=== PATIENT | female | born 2000 | race Caucasian/White ===

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

== ENCOUNTER 2019-10-14 15:28 | Emergency (ER) | payer BC ==
[2019-10-14 15:38] VITALS: BP 163/104; PULSE 96
[2019-10-14] MEDS ORDERED: LORazepam 1 MG Tab PO ONE (15:50)
--- NOTE | 2019-10-14 15:51 | EDM.PDOCBH ---
ED HPI GENERAL MEDICAL PROBLEM - General Chief Complaint: Behavioral/Psych Stated Complaint: RACING HEART/ SOB/NAUSEA Time Seen by Provider: 10/14/19 15:36 Source of Information: Reports: Patient, Family (mother) History Limitations: Reports: No Limitations - History of Present Illness INITIAL COMMENTS - FREE TEXT/NARRATIVE: 19-year-old female presents to the ED with feeling of shortness of breath and racing heart and pressure in her throat. Some numbness and tingling in her left upper extremity which comes and goes. Symptoms have been present for over 2 hours. She had similar symptoms last evening at home but was able to fall asleep. She has had milder similar symptoms in the past but never to this severity. She is otherwise healthy. She is prone to migraines and takes amitriptyline once daily at bedtime to prevent the headaches from occurring. He is been on this medication for a lengthy period of time. Denies any possibility of . Onset: Today Onset Date: 10/14/19 Onset Time: 14:00 Duration: Hour(s):, Constant Location: Reports: Generalized (Feeling of palpitations racing heart shortness of breath numbness and tingling in upper extremities.) Quality: Reports: Other (Fibrillation syndrome due to panic attack) Severity: Moderate Improves with: Reports: None Worsens with: Reports: None Context: Reports: Other. Denies: Activity, Exercise, Lifting, Sick Contact, Trauma Associated Symptoms: Reports: Loss of Appetite, Malaise, Nausea/Vomiting (Mild nausea without vomiting), Weakness, Other. 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 Below) 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: r ovary removal Musculoskeletal History: Reports: Fracture Other Neuro History: Patient states she gets migraines occasionally, Not been diagnosed as such Psychiatric History: Reports: ADHD Endocrine/Metabolic History: Reports: Obesity/BMI 30+ Dermatologic History: Reports: Eczema Other Dermatologic History: Eczema on stomach, Herpes hands/arms - Infectious Disease History Infectious Disease History: Reports: Herpes, Influenza, Mononucleosis Other Infectious Disease History: Hands and arm - Past Surgical History HEENT Surgical History: Reports: Oral Surgery Other HEENT Surgeries/Procedures: [place] teeth removed x3 Other Musculoskeletal Surgeries/Procedures:: (Patient thinks Left)Foot and leg surgery as a child Dermatological Surgical History: Reports: None - Past Imaging History Past Imaging History: Reports: CAT Scan (10/06/17 of abdomen pelvis), Ultrasound (10/06/17 Transabdominal and transvaginal pelvic ultrasounds) Social & Family History - Family History Family Medical History: Noncontributory HEENT: Reports: Cataract, Glaucoma Cardiac: Reports: Heart Failure, Hypertension, [place], Pacemaker GI: Reports: GERD Musculoskeletal: Reports: Arthritis Neurological: Reports: CVA, Migraines Endocrine/Metabolic: Reports: Diabetes, type II Oncologic: Reports: Lung Other Oncologic Family History: Patients maternal grandfather - Tobacco Use Smoking Status *Q: Never Smoker Second Hand Smoke Exposure: No - Caffeine Use Caffeine Use: Reports: Coffee, Energy Drinks, Soda Other Caffeine Use: Occasionally - Recreational Drug Use Recreational Drug Use: No - Living Situation & Occupation Living situation: Reports: Single Occupation: Student ED ROS GENERAL - Review of Systems Review Of Systems: See Below Constitutional: Reports: Malaise, Weakness, Fatigue, Decreased Appetite. Denies : Fever, Chills HEENT: Reports: No Symptoms Respiratory: Reports: Shortness of Breath. Denies: Wheezing, Pleuritic Chest Pain, Cough, Sputum Cardiovascular: Reports: Dyspnea on Exertion, Lightheadedness, Palpitations. Denies: Chest Pain, Blood Pressure Problem, Claudication, Edema, Orthopnea Endocrine: Reports: Fatigue GI/Abdominal: Reports: Nausea. Denies: Vomiting : Reports: No Symptoms Musculoskeletal: Reports: No Symptoms Skin: Reports: No Symptoms Neurological: Reports: No Symptoms Psychiatric: Reports: No Symptoms Hematologic/Lymphatic: Reports: No Symptoms Immunologic: Reports: No Symptoms ED EXAM, BEHAVIORAL HEALTH - Physical Exam Exam: See Below Exam Limited By: No Limitations General Appearance: Alert, WD/WN, Moderate Distress, Other (Vital signs show temperature 36.9 heart rate is 96 and sinus. Respiratory rate of 20/m with sats of 100% on room air. Blood pressure elevated 163/104 but quickly came back down to normal.) Eye Exam: Bilateral Eye: Normal Inspection, PERRL, Other (Has been crying a good deal with peripheral erythema both lower eyelids and smeared mascara periorbitally.) Throat/Mouth: Normal Inspection, Normal Lips, Normal Teeth, Normal Oropharynx Head: Atraumatic, Normocephalic Neck: Normal Inspection, Supple, Non-Tender, Full Range of Motion. No: Carotid Bruit, Lymphadenopathy (L), Lymphadenopathy (R), Thyromegaly Respiratory/Chest: Lungs Clear (Mild tachypnea.), Normal Breath Sounds, No Accessory Muscle Use, Chest Non-Tender, Respiratory Distress Cardiovascular: Normal Peripheral Pulses, Regular Rate, Rhythm, No Edema, No Gallop, No Murmur, No Rub GI/Abdominal: Normal Bowel Sounds, Soft, Non-Tender, No Organomegaly, No Mass, Pelvis Stable. No: Distended Extremities: Normal Inspection, Normal Range of Motion, Non-Tender, No Pedal Edema, Normal Capillary Refill Neurological: Alert, Normal Mood/Affect, CN II-XII Intact, Normal Cognition, Normal Gait, Normal Reflexes, No Motor/Sensory Deficits, Oriented x 3 Psychiatric: Alert, Normal Cognition, Other (Anxious) Skin Exam: Warm, Dry, Intact, Normal color, No rash COURSE, BEHAVIORAL HEALTH COMP - Course Vital Signs: Last Vital Signs Temp 36.9 C 10/14/19 15:38 Pulse 96 10/14/19 15:38 Resp 18 10/14/19 15:38 BP 163/104 H 10/14/19 15:38 Pulse Ox 100 10/14/19 15:38 Orders, Labs, Meds: Medications Discontinued Medications Generic Name Dose Route Start Last Admin Trade Name Freq PRN Reason Stop Dose Admin Lorazepam 1 mg 10/14/19 15:50 Ativan PO 10/14/19 15:51 ONETIME ONE Re-Assessment/Re-Exam: 19-year-old female presents to the ED with acute onset of hyperventilation syndrome so she with palpitations dyspnea and pressure in her throat. Symptoms been ongoing for the last 2 hours. She had milder symptoms last evening. She admits that she's had milder forms of anxiety attacks off and on for the last 2- 3 years. She just finished final exams for the first semester of college last week and did fine. She can't identify any other stressors at this point time. She believes she's been getting adequate sleep. She works at [employer] and works the day shift periodically with no stressors at her workplace. Vital signs are within normal limits other than mild tachypnea. Blood pressure was up initially but did come down with time. Examination neurologically normal. Chest is clear to stage percussion and heart sinus. No thyromegaly identified. Assessment is panic attack. Give Ativan 1 mg by mouth at this time she was not anxious to have an IV stick. I will see how she is in a half an hour. Re-Assessment/Re-Exam Date: 10/14/19 (Patient appears much more relaxed." Found out that she has not yet received the Ativan ordered by mouth. I will plan on giving her a tablet and a prescription for 8 more tablets to be used on a when necessary basis for panic disorder. Keep on coming back or persist for more than 3 weeks she is to follow-up with personal physician and consider chronic anxiety medication such as citalopram 20 mg once daily etc.) Departure - Departure Time of Disposition: 16:30 Disposition: Home, Self-Care 01 Condition: Fair Clinical Impression: Panic attack - Discharge Information *PRESCRIPTION DRUG MONITORING PROGRAM REVIEWED*: Not Applicable *COPY OF PRESCRIPTION DRUG MONITORING REPORT IN PATIENT JOSH: Not Applicable Prescriptions: LORazepam [Ativan] 1 mg PO Q8H PRN #8 tablet PRN Reason: Anxiety attack Referrals: Olga Barroso PA-C [Primary Care Provider] - Forms: ED Department Discharge Additional Instructions: Evaluation the emergent today in regards to sudden onset of feeling like her heart was racing associate with shortness of breath and pressure in the throat and some numbness and tingling in the hands. He symptoms have been present off and on since last evening but became much worse 2 hours before coming to the ED. Vital signs are normal .Oxygenation 100% on room air. Heart rate in the high 90s but no abnormal rhythms identified. Lungs are clear. The symptoms are that of an anxiety attack or panic attack. This can occur for no rhyme or reason. It is usually due to an imbalance of hormones in the brain which can be affected by menstrual cycle etc. Sleep can also bring it on. You were treated with Ativan 1 mg by mouth. Unfortunately medicine was not given to until 40 minutes after was ordered. Will take about a half an hour to 45 minutes to start reduce symptoms are prevent symptoms from recurring over the next 6-8 hours. Written a prescription for the same medication be taken every 8 hours as needed for similar symptoms. Symptoms continue to recur over the next 2-3 weeks and are not settling down then you need to follow-up with her personal care physician and we have alternative medications that were used to bring anxiety symptoms under control long-term without any potential for addiction to medications. Medication will likely make you somewhat sleepy and you should plan on staying home tonight and getting to bed a bit earlier than normal. Sepsis Event Note - Evaluation Sepsis Screening Result: No Definite Risk - Focused Exam Vital Signs: Vital Signs Temp Pulse Resp BP Pulse Ox 10/14/19 15:38 36.9 C 96 18 163/104 H 100 Date Exam was Performed: 10/14/19 Time Exam was Performed: 16:30
== END 2019-10-14 16:48 | disposition home or self-care (01) ==
LOC: JD.ED 15:28
DX: F41.0 Panic disorder [episodic paroxysmal anxiety] (principal); F90.9 Attention-deficit hyperactivity disorder, unspecified type; E66.9 Obesity, unspecified; Z68.31 Body mass index [BMI] 31.0-31.9, adult
CPT/HCPCS: 99284; A9270; 99283

== ENCOUNTER 2020-11-27 10:16 | Emergency (ER) | payer BC ==
[2020-11-27] MEDS ORDERED: Sodium Chloride 0.9% 1,000 ML IV STA (11:16)
--- NOTE | 2020-11-27 11:33 | EDM.PDOCBH ---
ED HPI GENERAL MEDICAL PROBLEM - General Chief Complaint: Behavioral/Psych Stated Complaint: ANXIETY/SYNCOPE Time Seen by Provider: 11/27/20 11:12 Source of Information: Reports: Patient, RN Notes Reviewed History Limitations: Reports: No Limitations - History of Present Illness INITIAL COMMENTS - FREE TEXT/NARRATIVE: Patient is a 20 year old female presenting to the ER with c/o panic attacks. Over the last few weeks, she has been having a few episodes of panicking, palpitations, headaches, dizziness and vomiting. Her last panic attack was this morning. She took Ativan 1mg PO at about 0830 this morning and states that it started working a couple hours later. She has a long history of anxiety and depression, however, the symptoms seem to be worsening over the last few weeks. Her PCP is EDISON Lane; however, she has been out of the office for the last week. She saw Marleen Schuler NP yesterday. She took her off her Wellbutrin and had her stay on her Lexapro and Ativan. She also checked her TSH which she states was normal. She has seen a therapist at [facility] in the past but it has been quite awhile. She does have an appointment at [facility] on Wednesday next week. She states that she forgot to tell Marleen about the dizziness, headaches, and vomiting that are associated with her anxiety. She called to tell her about that this morning and she told her to come to the ER. She denies any abdominal pain, fever, or chills. She is having no thoughts of self harm. 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: r ovary removal Musculoskeletal History: Reports: Fracture Other Neuro History: Patient states she gets migraines occasionally, Not been diagnosed as such Psychiatric History: Reports: ADHD, Anxiety Endocrine/Metabolic History: Reports: Obesity/BMI 30+ Dermatologic History: Reports: Eczema Other Dermatologic History: Eczema on stomach, - Infectious Disease History Infectious Disease History: Reports: Herpes, Influenza, Mononucleosis Other Infectious Disease History: Hands and arm - Past Surgical History HEENT Surgical History: Reports: Oral Surgery Other HEENT Surgeries/Procedures: [place] teeth removed x3 Other Musculoskeletal Surgeries/Procedures:: (Patient thinks Left)Foot and leg surgery as a child Dermatological Surgical History: Reports: None - Past Imaging History Past Imaging History: Reports: CAT Scan (10/06/17 of abdomen pelvis), Ultrasound (10/06/17 Transabdominal and transvaginal pelvic ultrasounds) Social & Family History - Family History Family Medical History: No Pertinent Family History HEENT: Reports: Cataract, Glaucoma Cardiac: Reports: Heart Failure, Hypertension, [place], Pacemaker GI: Reports: GERD Musculoskeletal: Reports: Arthritis Neurological: Reports: CVA, Migraines Endocrine/Metabolic: Reports: Diabetes, type II Oncologic: Reports: Lung Other Oncologic Family History: Patients maternal grandfather - Tobacco Use Tobacco Use Status *Q: Never Tobacco User - Caffeine Use Caffeine Use: Reports: None Other Caffeine Use: Occasionally - Recreational Drug Use Recreational Drug Use: No - Living Situation & Occupation Living situation: Reports: Single Occupation: Student ED ROS GENERAL - Review of Systems Review Of Systems: See Below Constitutional: Reports: No Symptoms HEENT: Reports: No Symptoms Respiratory: Reports: No Symptoms Cardiovascular: Reports: No Symptoms Endocrine: Reports: No Symptoms GI/Abdominal: Reports: Nausea, Vomiting. Denies: Abdominal Pain, Diarrhea : Reports: No Symptoms Musculoskeletal: Reports: No Symptoms Skin: Reports: No Symptoms Neurological: Reports: Dizziness, Headache Psychiatric: Reports: Anxiety. Denies: Homicidal Ideation, Suicidal Ideation Hematologic/Lymphatic: Reports: No Symptoms Immunologic: Reports: No Symptoms ED EXAM, BEHAVIORAL HEALTH - Physical Exam Exam: See Below General Appearance: Alert, WD/WN, No Apparent Distress Eye Exam: Bilateral Eye: Normal Inspection, PERRL Respiratory/Chest: No Respiratory Distress, Lungs Clear, Normal Breath Sounds, No Accessory Muscle Use, Chest Non-Tender Cardiovascular: Normal Peripheral Pulses, Regular Rate, Rhythm, No Edema, No Gallop, No JVD, No Murmur, No Rub GI/Abdominal: Normal Bowel Sounds, Soft, Non-Tender, No Organomegaly, No Distention, No Abnormal Bruit, No Mass Neurological: Alert, Normal Mood/Affect, CN II-XII Intact, Normal Cognition, Normal Gait, Normal Reflexes, No Motor/Sensory Deficits, Oriented x 3 Psychiatric: Alert, Normal Cognition, Normal Mood, Oriented, Flat Affect Skin Exam: Warm, Dry, Intact, Normal color, No rash COURSE, BEHAVIORAL HEALTH COMP - Course Vital Signs: Last Vital Signs Temp 98.1 F 11/27/20 10:30 Pulse 85 11/27/20 13:20 Resp 12 11/27/20 10:30 BP 120/80 11/27/20 13:20 Pulse Ox 10 L 11/27/20 13:20 Orthostatic Blood Pressure [ 126/93 Standing] Orthostatic Blood Pressure [ 131/88 Sitting] Orthostatic Blood Pressure [ 122/95 Supine] Orders, Labs, Meds: Laboratory Tests 11/27/20 11/27/20 Range/Units 11:40 11:40 WBC 3.68 L (3.98-10.04) K/mm3 RBC 4.74 (3.98-5.22) M/mm3 Hgb 13.5 (11.2-15.7) gm/dl Hct 41.5 (34.1-44.9) % MCV 87.6 (79.4-94.8) fl MCH 28.5 (25.6-32.2) pg MCHC 32.5 (32.2-35.5) g/dl RDW Std Deviation 39.7 (36.4-46.3) fL Plt Count 132 L (182-369) K/mm3 MPV 12.4 H (9.4-12.3) fl Neut % (Auto) 48.9 (34.0-71.1) % Lymph % (Auto) 37.5 (19.3-51.7) % Butler % (Auto) 11.7 (4.7-12.5) % Eos % (Auto) 1.4 (0.7-5.8) Baso % (Auto) 0.5 (0.1-1.2) % Neut # (Auto) 1.80 (1.56-6.13) K/mm3 Lymph # (Auto) 1.38 (1.18-3.74) K/mm3 Butler # (Auto) 0.43 H (0.24-0.36) K/mm3 Eos # (Auto) 0.05 (0.04-0.36) K/mm3 Baso # (Auto) 0.02 (0.01-0.08) K/mm3 Sodium 141 (136-145) mEq/L Potassium 4.6 (3.5-5.1) mEq/L Chloride 105 (98-107) mEq/L Carbon Dioxide 25 (21-32) mEq/L Anion Gap 15.6 H (5-15) BUN 9 (7-18) mg/dL Creatinine 0.9 (0.55-1.02) mg/dL Est Cr Clr Drug Dosing 85.38 mL/min Estimated GFR (MDRD) > 60 (>60) mL/min BUN/Creatinine Ratio 10.0 L (14-18) Glucose 91 (74-106) mg/dL Calcium 9.0 (8.5-10.1) mg/dL Total Bilirubin 0.3 (0.2-1.0) mg/dL AST 13 L (15-37) U/L ALT 18 (14-59) U/L Alkaline Phosphatase 63 (46-116) U/L C-Reactive Protein <0.2 (<1.0) mg/dL Total Protein 7.3 (6.4-8.2) g/dl Albumin 3.7 (3.4-5.0) g/dl Globulin 3.6 gm/dL Albumin/Globulin Ratio 1.0 (1-2) TSH 3rd Generation 0.467 (0.358-3.74) uIU/mL Medications Discontinued Medications Generic Name Dose Route Start Last Admin Trade Name Freq PRN Reason Stop Dose Admin Sodium Chloride 1,000 mls @ 999 mls/hr 11/27/20 11:16 11/27/20 11:33 Normal Saline IV 11/27/20 12:16 999 mls/hr NOW STA Administration Ketorolac Tromethamine 30 mg 11/27/20 12:36 11/27/20 12:47 Toradol IVPUSH 11/27/20 12:37 30 mg ONETIME ONE Administration Discharge vs Psych Eval/Treatment:: 11/27/20 13:13 Hematology is grossly unremarkable. Patient is feeling somewhat better after the IV fluids and Toradol. I will send a prescription for Zofran. Recommend that she continue to use her Ativan as previously prescribed. She should call to schedule a follow-up appointment with her PCP, Olga Barroso at her next available visit. Keep her appointment with therapy on Wednesday. Discussed return precautions. Discharge instructions as documented. Departure - Departure Time of Disposition: 13:13 Disposition: Home, Self-Care 01 Condition: Good Clinical Impression: Anxiety Nausea and vomiting Qualifiers: Vomiting type: unspecified Vomiting Intractability: non-intractable Qualified Code(s): R11.2 - Nausea with vomiting, unspecified - Discharge Information *PRESCRIPTION DRUG MONITORING PROGRAM REVIEWED*: No *COPY OF PRESCRIPTION DRUG MONITORING REPORT IN PATIENT JOSH: No Prescriptions: Ondansetron [Zofran ODT] 4 mg PO Q6H PRN #10 tab.dis PRN Reason: Nausea/Vomiting Instructions: Nausea and Vomiting, Adult, [id number], Managing Anxiety, Adult Referrals: Olga Barroso PA-C [Primary Care Provider] - Forms: ED Department Discharge, ED Return to Work/School Form Additional Instructions: You were seen in the emergency department today for evaluation with regards to recurrent anxiety attacks, nausea and vomiting, and headaches. Blood work was completed and found to be normal. While you were in the ER, you received a liter of IV fluids as well as Toradol for your headache. A prescription for Zofran for nausea has been sent to clinic pharmacy. Use this medication as needed. Continue your Lexapro and Ativan as previously prescribed. Recommend calling today to set up a follow-up appointment with Olga Barroso for ongoing monitoring and management of your anxiety medications. [facility] as [facility] scheduled. Return to ER as needed. Sepsis Event Note (ED) - Evaluation Sepsis Screening Result: No Definite Risk
[2020-11-27] MEDS ORDERED: Ketorolac 30 MG/ML SDV IVPUSH ONE (12:36)
[2020-11-27 14:03] VITALS: BP 120/80; PULSE 85
== END 2020-11-27 13:25 | disposition home or self-care (01) ==
LOC: JD.ED 10:16
DX: F41.9 Anxiety disorder, unspecified (principal); R11.2 Nausea with vomiting, unspecified; E66.9 Obesity, unspecified; Z68.32 Body mass index [BMI] 32.0-32.9, adult; Z79.899 Other long term (current) drug therapy
CPT/HCPCS: 36415; 80053; 84443; 85025; 86140; 96374; 99284; J1885; J7030

== ENCOUNTER 2022-08-13 03:35 | Emergency (ER) | payer BC ==
[2022-08-13] MEDS ORDERED: Albuterol/Ipratropium 3.0-0.5 MG/3 ML Neb Soln NEB ONE (03:59)
[2022-08-13 04:45] LABS: CORONAVIRUS COVID-19 NAA NEGATIVE (NEGATIVE)
[2022-08-13] MEDS ORDERED: Azithromycin 250 MG Tab PO ONE (05:05)
[2022-08-13] MEDS ORDERED: Albuterol 6.7 GM Inhaler INH ONE (05:05)
[2022-08-13 05:40] VITALS: BP 115/88; PULSE 78
== END 2022-08-13 05:35 | disposition home or self-care (01) ==
LOC: JD.ED 03:35
DX: J40 Bronchitis, not specified as acute or chronic (principal); E66.9 Obesity, unspecified; Z68.39 Body mass index [BMI] 39.0-39.9, adult; Z79.899 Other long term (current) drug therapy; Z20.822 Contact with and (suspected) exposure to COVID-19
CPT/HCPCS: 0241U; 71046; 94640; 99285; A9270; 99284; J7620-GY